=== PATIENT | female | born 1950 | race Caucasian/White ===

== ENCOUNTER 2017-01-24 07:54 | Inpatient (IN) | payer MEDICARE ==
[~2017-01-24] VITALS: Ht 165.1 cm; Wt 93.8 kg
[2017-01-24 08:47] LABS: HEMATOCRIT 45.6 % (37.0-47.0); HEMOGLOBIN 15.4 g/dl (12.0-16.0); IMMATURE GRANULOCYTES 0.2 % (0.0-1.0); MEAN CELL VOLUME 88.9 fL CALC (80.0-100.0); MEAN CORPUSCULAR HGB CONC 33.8 g/L CALC (32.0-36.0); NEUT# 3.46 thou/uL (2.00-7.15); RED BLOOD COUNT 5.13 mill/uL (4.20-5.60); RED CELL DISTRI WIDTH 12.2 % (11.5-15.5)
[2017-01-24 09:01] LABS: ALBUMIN 4.2 g/dL (3.2-5.0); ALKALINE PHOSPHATASE 97 u/l (38-126); ANION GAP 16 (6-22 (CALC)); BILIRUBIN, TOTAL 0.8 mg/dL (0.0-1.4); BUN 9 mg/dL (8-23); BUN/CREATININE RATIO 11 (12-20 (CALC)); CALCIUM 9.7 mg/dL (8.4-10.2); CARBON DIOXIDE 25 mmol/l (22-30); CHLORIDE 109 mmol/l (95-108); CREATININE 0.8 mg/dL (0.5-1.0); GFR > 60 ML/MIN (>=60 (CALC)); GFR FOR AFR.AMER. > 60 ML/MIN (>=60 (CALC)); GLUCOSE 144 mg/dL (82-115); POTASSIUM 3.4 mmol/l (3.5-5.1); SGOT/AST 28 u/l (9-36); SGPT/ALT 39 u/l (11-66); SODIUM 146 mmol/l (137-146); TOTAL PROTEIN 7.2 g/dL (6.3-8.2)
[2017-01-24] MEDS ORDERED: CYMBALTA60 MG PO (10:25)
[2017-01-24] MEDS ORDERED: TRAZODONE50 MG PO (10:25)
[2017-01-24] MEDS ORDERED: AMLOD/BENAZP1 CA2 PO (10:26)
[2017-01-24] MEDS ORDERED: LORAZEPAM0.5 MG PO (10:27)
[2017-01-24 10:29] LABS: URINE BILIRUBIN - DIPSTICK NEGATIVE (NEGATIVE); URINE BLOOD DIPSTICK TRACE-INTACT (NEGATIVE); URINE CLARITY CLEAR; URINE COLOR YELLOW; URINE GLUCOSE - DIPSTICK NEGATIVE (NEGATIVE); URINE KETONE NEGATIVE (NEGATIVE); URINE LEUK ESTERASE TRACE (NEGATIVE); URINE NITRITE - DIPSTICK NEGATIVE (Negative); URINE PROTEIN - DIPSTICK NEGATIVE (NEG-TRACE); URINE SPECIFIC GRAVITY 1.015; URINE UROBILINOGEN - DIPSTICK 0.2 E.U./dL (0.2)
[2017-01-24 12:07] VITALS: BP 126/71
[2017-01-24 15:22] VITALS: BP 166/83
[2017-01-24 17:53] VITALS: BP 139/73
[2017-01-24 19:10] VITALS: BP 98/59
[2017-01-25] VITALS (22 sets, daily range): BP systolic 83–164; BP diastolic 31–101
[2017-01-25 06:27] LABS: HEMATOCRIT 40.7 % (37.0-47.0); HEMOGLOBIN 13.6 g/dl (12.0-16.0); MEAN CELL VOLUME 89.6 fL CALC (80.0-100.0); MEAN CORPUSCULAR HGB CONC 33.4 g/L CALC (32.0-36.0); RED BLOOD COUNT 4.54 mill/uL (4.20-5.60); RED CELL DISTRI WIDTH 12.7 % (11.5-15.5)
[2017-01-25 06:48] LABS: CALCIUM 8.8 mg/dL (8.4-10.2); CREATININE 1.3 mg/dL (0.5-1.0); POTASSIUM 4.1 mmol/l (3.5-5.1)
[2017-01-25 13:01] LABS: URINE BILIRUBIN - DIPSTICK NEGATIVE (NEGATIVE); URINE BLOOD DIPSTICK LARGE (NEGATIVE); URINE COLOR YELLOW; URINE GLUCOSE - DIPSTICK NEGATIVE (NEGATIVE); URINE KETONE NEGATIVE (NEGATIVE); URINE NITRITE - DIPSTICK NEGATIVE (Negative); URINE PROTEIN - DIPSTICK NEGATIVE (NEG-TRACE); URINE UROBILINOGEN - DIPSTICK 0.2 E.U./dL (0.2)
[2017-01-25 13:06] LABS: URINE CLARITY CLOUDY; URINE LEUK ESTERASE MODERATE (NEGATIVE)
[2017-01-25 13:17] LABS: URINE BACTERIA FEW hpf; URINE RBC 25-50 RBC/hpf (0-5); URINE SQUAMOUS EPITHELIAL CELL FEW EPI/hpf (0-FEW); URINE WBC 20-50 WBC/hpf (0-5)
[2017-01-26 04:35] VITALS: BP 134/76
[2017-01-26 06:22] LABS: HEMATOCRIT 31.6 % (37.0-47.0); HEMOGLOBIN 10.4 g/dl (12.0-16.0); MEAN CELL VOLUME 89.5 fL CALC (80.0-100.0); MEAN CORPUSCULAR HGB 29.5 pG CALC (26.0-32.0); MEAN CORPUSCULAR HGB CONC 32.9 g/L CALC (32.0-36.0); RED BLOOD COUNT 3.53 mill/uL (4.20-5.60); RED CELL DISTRI WIDTH 12.8 % (11.5-15.5)
[2017-01-26 06:46] LABS: ANION GAP 10 (6-22 (CALC)); BUN 15 mg/dL (8-23); BUN/CREATININE RATIO 17 (12-20 (CALC)); CALCIUM 8.5 mg/dL (8.4-10.2); CARBON DIOXIDE 26 mmol/l (22-30); CHLORIDE 111 mmol/l (95-108); CREATININE 0.9 mg/dL (0.5-1.0); GFR > 60 ML/MIN (>=60 (CALC)); GFR FOR AFR.AMER. > 60 ML/MIN (>=60 (CALC)); GLUCOSE 104 mg/dL (82-115); MAGNESIUM 1.9 mg/dL (1.6-2.3); POTASSIUM 3.6 mmol/l (3.5-5.1); SODIUM 142 mmol/l (137-146)
[2017-01-26 07:45] VITALS: BP 136/70
[2017-01-26 17:00] VITALS: BP 153/86
[2017-01-26 19:10] VITALS: BP 144/84
[2017-01-27 04:08] VITALS: BP 171/91
[2017-01-27 08:04] VITALS: BP 153/83
[2017-01-27] MEDS ORDERED: KEFLEX500 M1 PO (13:09)
== END 2017-01-27 14:15 | disposition home or self-care (01) | DRG 872 ==
LOC: ED 07:54 → ED-I 08:31 → ED 11:27 → MS2 11:28
PROVIDERS: Emergency Medicine; Internal Medicine; ADMIT Internal Medicine; ATTEND Internal Medicine
PROC: 0T768DZ Dilation of Right Ureter with Intraluminal Device, Via Natural or Artificial Opening Endoscopic (ICD-10-PCS; principal; 2017-01-25)
PROC: BT1DYZZ Fluoroscopy of Right Kidney, Ureter and Bladder using Other Contrast (ICD-10-PCS; 2017-01-25)
DX: A41.9 Sepsis, unspecified organism (principal); N17.9 Acute kidney failure, unspecified; E87.2 Acidosis; N13.6 Pyonephrosis; F32.9 Major depressive disorder, single episode, unspecified; I10 Essential (primary) hypertension; F41.9 Anxiety disorder, unspecified; B96.20 Unspecified Escherichia coli [E. coli] as the cause of diseases classified elsewhere; Z87.442 Personal history of urinary calculi
CPT/HCPCS: J0692; J1650; Q9967

== ENCOUNTER 2017-02-25 07:04 | Day surgery (SDC) | payer MEDICARE ==
[~2017-02-25] VITALS: Ht 165.1 cm; Wt 93.0 kg
[~2017-02-25 07:04] MED LIST: AMLOD/BENAZP1 CA2 PO; CIPRO XR500 MG PO; CYMBALTA60 MG PO; KEFLEX500 M1 PO; LORAZEPAM0.5 MG PO; OXYCODONE5 MG PO; TRAZODONE50 MG PO; TYLENOL500 MG PO; ZESTRIL10 M1 PO
[2017-02-25] MEDS ORDERED: TAMSULOSIN0.4 MG PO (10:43)
[2017-02-25] MEDS ORDERED: PERCOCET 5/325M1 TAB PO (10:43)
[2017-02-25 11:43] VITALS: BP 112/60
== END 2017-02-25 11:55 | disposition home or self-care (01) ==
LOC: ORM 07:04
PROVIDERS: ATTEND Urology
PROC: 0TF3XZZ Fragmentation in Right Kidney Pelvis, External Approach (ICD-10-PCS; principal; 2017-02-25)
PROC: 0TF6XZZ Fragmentation in Right Ureter, External Approach (ICD-10-PCS; 2017-02-25)
DX: N20.2 Calculus of kidney with calculus of ureter (principal); I10 Essential (primary) hypertension; F32.9 Major depressive disorder, single episode, unspecified; F41.9 Anxiety disorder, unspecified; Z96.0 Presence of urogenital implants

== ENCOUNTER 2018-11-03 07:09 | Day surgery (SDC) | payer MEDICARE ==
[~2018-11-03] VITALS: Ht 172.7 cm; Wt 94.3 kg
[~2018-11-03 07:09] MED LIST changes: +B-12 INJECTION; +B-121000 MC1 PO; +CYANOCOBAL1000 MCG/M; +CYMBALTA30 MG PO; +D3; +LISINOPRIL20 MG PO; +MULTIVITAMI9 PO; +NORVASC5 M1 PO; +PERCOCET 5/325M1 TAB PO; +PROAIR HFA IN; +TAMSULOSIN0.4 MG PO; +VITAMIN D320 MCG
[2018-11-03 09:21] VITALS: BP 155/78
== END 2018-11-03 09:25 | disposition home or self-care (01) ==
LOC: ENDO 07:09
PROVIDERS: ATTEND Surgery
PROC: 0DBH8ZX Excision of Cecum, Via Natural or Artificial Opening Endoscopic, Diagnostic (ICD-10-PCS; principal; 2018-11-03)
PROC: 0DBL8ZX Excision of Transverse Colon, Via Natural or Artificial Opening Endoscopic, Diagnostic (ICD-10-PCS; 2018-11-03)
DX: D12.3 Benign neoplasm of transverse colon (principal); K63.5 Polyp of colon; K57.30 Diverticulosis of large intestine without perforation or abscess without bleeding

== ENCOUNTER 2019-05-14 | Emergency (ER) | payer MEDICARE ==
[2019-05-14] MEDS ORDERED: AMOXICILLIN875 MG PO (12:43)
== END 2019-05-14 13:05 | disposition home or self-care (01) ==
DX: I10 Essential (primary) hypertension (principal); J02.0 Streptococcal pharyngitis; N20.0 Calculus of kidney; R30.0 Dysuria; B96.20 Unspecified Escherichia coli [E. coli] as the cause of diseases classified elsewhere

== ENCOUNTER 2019-05-23 | Emergency (ER) | payer MEDICARE ==
[~2019-05-23] MED LIST changes: +AMOXICILLIN875 MG PO
[2019-05-23] MEDS ORDERED: TESSALON PERLE100 MG PO ×2 (12:53)
[2019-05-23] MEDS ORDERED: VENTOLIN HFA IN ×2 (12:53)
[2019-05-23] MEDS ORDERED: ZPAK PO (12:53)
== END 2019-05-23 13:05 | disposition home or self-care (01) ==
DX: J02.0 Streptococcal pharyngitis (principal); J40 Bronchitis, not specified as acute or chronic; I10 Essential (primary) hypertension

== ENCOUNTER 2019-08-26 22:48 | Emergency (ER) | payer MEDICARE ==
[~2019-08-26] VITALS: Ht 165.1 cm; Wt 95.5 kg
[~2019-08-26 22:48] MED LIST changes: +TESSALON PERLE100 MG PO; +VENTOLIN HFA IN; +ZPAK PO
[2019-08-26 23:45] LABS: URINE BILIRUBIN - DIPSTICK NEGATIVE (NEGATIVE); URINE BLOOD DIPSTICK NEGATIVE (NEGATIVE); URINE COLOR YELLOW; URINE GLUCOSE - DIPSTICK NEGATIVE (NEGATIVE); URINE KETONE NEGATIVE (NEGATIVE); URINE LEUK ESTERASE NEGATIVE (NEGATIVE); URINE NITRITE - DIPSTICK NEGATIVE (Negative); URINE PH 5.5 (4.5-8.0); URINE PROTEIN - DIPSTICK NEGATIVE (NEG-TRACE); URINE SPECIFIC GRAVITY >=1.030; URINE UROBILINOGEN - DIPSTICK 0.2 E.U./dL (0.2)
[2019-08-26 23:59] LABS: HEMATOCRIT 44.4 % (37.0-47.0); HEMOGLOBIN 14.8 g/dl (12.0-16.0); IMMATURE GRANULOCYTES 0.3 % (0.0-5.0); MEAN CELL VOLUME 88.4 fL CALC (80.0-100.0); MEAN CORPUSCULAR HGB 29.5 pG CALC (26.0-32.0); MEAN CORPUSCULAR HGB CONC 33.3 g/dL CAL (32.0-36.0); NEUT# 7.28 thou/uL (2.00-7.15); RED BLOOD COUNT 5.02 mill/uL (4.20-5.60); RED CELL DISTRI WIDTH 12.2 % (11.5-15.5)
[2019-08-27 00:27] LABS: ALBUMIN 4.2 g/dL (3.2-5.0); ALKALINE PHOSPHATASE 91 u/l (38-126); ANION GAP 13 (6-22 (CALC)); BILIRUBIN, TOTAL 0.5 mg/dL (0.0-1.4); BUN 11 mg/dL (8-23); BUN/CREATININE RATIO 15 (12-20 (CALC)); CARBON DIOXIDE 25 mmol/l (22-30); CHLORIDE 105 mmol/l (95-108); CREATININE 0.8 mg/dL (0.5-1.0); GFR > 60 ML/MIN (>=60 (CALC)); GFR FOR AFR.AMER. > 60 ML/MIN (>=60 (CALC)); POTASSIUM 3.9 mmol/l (3.5-5.1); SGOT/AST 19 u/l (9-36); SODIUM 138 mmol/l (137-146)
[2019-08-27] MEDS ORDERED: TORADOL PO (01:26)
[2019-08-27 01:30] VITALS: BP 144/62
== END 2019-08-27 02:10 | disposition home or self-care (01) ==
LOC: ED 22:48
PROVIDERS: Family Medicine
DX: S29.012A Strain of muscle and tendon of back wall of thorax, initial encounter (principal); S29.011A Strain of muscle and tendon of front wall of thorax, initial encounter; I10 Essential (primary) hypertension; X58.XXXA Exposure to other specified factors, initial encounter

== ENCOUNTER 2020-07-03 | Emergency (ER) | payer MEDICARE ==
[~2020-07-03] MED LIST changes: +TORADOL PO
[2020-07-03] MEDS ORDERED: HYDROCO/APAP1 TA9 PO (10:25)
== END 2020-07-03 11:35 | disposition home or self-care (01) ==
DX: S82.114A Nondisplaced fracture of right tibial spine, initial encounter for closed fracture (principal); I10 Essential (primary) hypertension; F32.9 Major depressive disorder, single episode, unspecified; F41.9 Anxiety disorder, unspecified; W01.0XXA Fall on same level from slipping, tripping and stumbling without subsequent striking against object, initial encounter; Y92.009 Unspecified place in unspecified non-institutional (private) residence as the place of occurrence of the external cause
CPT/HCPCS: L1830

== ENCOUNTER 2020-09-02 12:40 | Emergency (ER) | payer MEDICARE ==
[~2020-09-02] VITALS: Ht 165.1 cm; Wt 85.9 kg
[~2020-09-02 12:40] MED LIST changes: +HYDROCO/APAP1 TA9 PO
[2020-09-02] MEDS ORDERED: IBUPROFEN600 MG PO (15:18)
[2020-09-02 15:34] VITALS: BP 145/78
== END 2020-09-02 15:35 | disposition home or self-care (01) ==
LOC: ED 12:40
DX: S86.111A Strain of other muscle(s) and tendon(s) of posterior muscle group at lower leg level, right leg, initial encounter (principal); I10 Essential (primary) hypertension; F32.9 Major depressive disorder, single episode, unspecified; F41.9 Anxiety disorder, unspecified; X50.9XXA Other and unspecified overexertion or strenuous movements or postures, initial encounter

== ENCOUNTER 2022-02-15 12:34 | Emergency (ER) | payer OTHER, MEDICARE ==
[~2022-02-15] VITALS: Ht 165.1 cm; Wt 96.0 kg
[~2022-02-15 12:34] MED LIST changes: +IBUPROFEN600 MG PO
[2022-02-15 15:18] LABS: URINE BILIRUBIN - DIPSTICK NEGATIVE (NEGATIVE); URINE BLOOD DIPSTICK NEGATIVE (NEGATIVE); URINE COLOR YELLOW; URINE GLUCOSE - DIPSTICK NEGATIVE (NEGATIVE); URINE KETONE NEGATIVE (NEGATIVE); URINE LEUK ESTERASE TRACE (NEGATIVE); URINE PH 6.5 (4.5-8.0); URINE PROTEIN - DIPSTICK NEGATIVE (NEG-TRACE); URINE UROBILINOGEN - DIPSTICK 0.2 E.U./dL (0.2)
[2022-02-15 15:20] LABS: URINE NITRITE - DIPSTICK POSITIVE (Negative)
[2022-02-15 15:29] LABS: URINE BACTERIA MANY hpf; URINE SQUAMOUS EPITHELIAL CELL FEW EPI/hpf (0-FEW)
[2022-02-15] MEDS ORDERED: MACROBID100 M1 PO (16:26)
[2022-02-15] MEDS ORDERED: METHOCARBAMOL500 MG PO (16:26)
[2022-02-15] MEDS ORDERED: NAPROXEN500 MG PO (16:26)
[2022-02-15 16:52] VITALS: BP 136/65
== END 2022-02-15 16:52 | disposition home or self-care (01) | DRG 552 ==
LOC: ED 12:34
PROVIDERS: Nurse Practitioner
DX: S16.1XXA Strain of muscle, fascia and tendon at neck level, initial encounter (principal); N39.0 Urinary tract infection, site not specified; I10 Essential (primary) hypertension; F41.8 Other specified anxiety disorders; V49.50XA Passenger injured in collision with unspecified motor vehicles in traffic accident, initial encounter

== ENCOUNTER 2022-05-23 09:04 | Day surgery (SDC) | payer MEDICARE ==
[~2022-05-23] VITALS: Ht 162.6 cm; Wt 95.7 kg
[~2022-05-23 09:04] MED LIST changes: +CYANOCOBAL1000 MCG/M IM; +D31000 UNIT PO; +MACROBID100 M1 PO; +METHOCARBAMOL500 MG PO; +MULTI VIT PO; +NAPROXEN500 MG PO
[2022-05-23 12:05] VITALS: BP 142/79
== END 2022-05-23 11:55 | disposition home or self-care (01) ==
LOC: ORM 09:04
PROVIDERS: ATTEND Surgery
PROC: 0DBL8ZX Excision of Transverse Colon, Via Natural or Artificial Opening Endoscopic, Diagnostic (ICD-10-PCS; principal; 2022-05-23)
DX: Z12.11 Encounter for screening for malignant neoplasm of colon (principal); D12.3 Benign neoplasm of transverse colon; K57.30 Diverticulosis of large intestine without perforation or abscess without bleeding; K64.8 Other hemorrhoids; I10 Essential (primary) hypertension; F41.9 Anxiety disorder, unspecified; F32.A Depression, unspecified

== ENCOUNTER 2024-03-10 16:50 | Emergency (ER) | payer MEDICARE ==
[~2024-03-10] VITALS: Ht 162.6 cm; Wt 78.0 kg
[2024-03-10] VITALS (12 sets, daily range): BP systolic 150–206; BP diastolic 77–107
[2024-03-10] MEDS ORDERED: KETOROLAC TROMETHAMINE 15 MG/ML SDV IV ONE (16:55)
[2024-03-10 17:14] LABS: BASO% 0.6 % (0-3); EOS% 2.5 % (0-8); HEMATOCRIT 42.9 % (37.0-47.0); HEMOGLOBIN 13.9 g/dl (12.0-16.0); IMMATURE GRANULOCYTES 0.1 % (0.0-5.0); MEAN CELL VOLUME 88.6 fL CALC (80.0-100.0); MEAN CORPUSCULAR HGB 28.7 pG CALC (26.0-32.0); MEAN CORPUSCULAR HGB CONC 32.4 g/dL CAL (32.0-36.0); MONO% 7.1 % (2-13); NEUT# 3.83 thou/uL (2.00-7.15); NEUT% 56.7 % (42-76); RED BLOOD COUNT 4.84 mill/uL (4.20-5.60); RED CELL DISTRI WIDTH 12.6 % (11.5-15.5)
[2024-03-10 17:21] LABS: ALBUMIN 4.1 g/dL (3.2-5.0); BILIRUBIN, TOTAL 0.6 mg/dL (0.02-1.3); CREATININE 0.9 mg/dL (0.5-1.0); POTASSIUM 3.8 mmol/l (3.5-5.1); TOTAL PROTEIN 6.7 g/dL (6.3-8.2)
[2024-03-10] MEDS ORDERED: LABETALOL HCL 100 MG/20 ML VIAL IV ONE (17:25)
[2024-03-10 17:30] LABS: URINE BILIRUBIN - DIPSTICK Negative (NEGATIVE); URINE BLOOD DIPSTICK Moderate (NEGATIVE); URINE COLOR Yellow; URINE GLUCOSE - DIPSTICK Negative (NEGATIVE); URINE KETONE Negative (NEGATIVE); URINE LEUK ESTERASE Moderate (NEGATIVE); URINE NITRITE - DIPSTICK Negative (Negative); URINE PROTEIN - DIPSTICK 30 mg/dL (NEG-TRACE); URINE SPECIFIC GRAVITY 1.025; URINE UROBILINOGEN - DIPSTICK 0.2 E.U./dL (0.2)
[2024-03-10 17:35] LABS: URINE WBC 50-100 WBC/hpf (0-5)
[2024-03-10 17:36] LABS: URINE BACTERIA FEW hpf; URINE CALCIUM OXALATE CRYSTALS MODERATE lpf; URINE SQUAMOUS EPITHELIAL CELL FEW EPI/hpf (0-FEW)
[2024-03-10 17:37] LABS: URINE YEAST FEW hpf
[2024-03-10] MEDS ORDERED: SODIUM CHLORIDE 0.9% 1,000 ML IV ONE (19:10)
[2024-03-10] MEDS ORDERED: TORADOL PO (21:14)
[2024-03-10] MEDS ORDERED: MACROBID100 M1 PO (21:14)
[2024-03-10] MEDS ORDERED: OMNICEF300 M1 PO (21:14)
[2024-03-10] MEDS ORDERED: ZOFRAN4 MG/TAB PO (21:14)
== END 2024-03-10 22:46 | disposition home or self-care (01) ==
LOC: ED 16:50
PROVIDERS: Family Medicine
DX: N13.6 Pyonephrosis (principal); B96.1 Klebsiella pneumoniae [K. pneumoniae] as the cause of diseases classified elsewhere; I10 Essential (primary) hypertension; F32.A Depression, unspecified; F41.9 Anxiety disorder, unspecified; Z87.442 Personal history of urinary calculi
CPT/HCPCS: J0696; J1885; J1920

== ENCOUNTER 2024-05-07 17:41 | Observation (INO) | payer MEDICARE ==
[2024-05-07] VITALS (25 sets, daily range): BP systolic 113–211; BP diastolic 59–107
[~2024-05-07] VITALS: Ht 162.6 cm; Wt 85.0 kg
[~2024-05-07 17:41] MED LIST changes: +OMNICEF300 M1 PO; +ZOFRAN4 MG/TAB PO
[2024-05-07] MEDS ORDERED: MORPHINE SULFATE 4 MG/ML VIAL IV STA (18:14)
[2024-05-07] MEDS ORDERED: SODIUM CHLORIDE 0.9% 1,000 ML IV ONE (18:15)
[2024-05-07] MEDS ORDERED: ONDANSETRON HCl 4 MG/2 ML SDV IV ONE (18:15)
[2024-05-07 18:22] LABS: BASO% 0.4 % (0-3); EOS% 1.9 % (0-8); HEMATOCRIT 41.5 % (37.0-47.0); HEMOGLOBIN 13.4 g/dl (12.0-16.0); IMMATURE GRANULOCYTES 0.1 % (0.0-5.0); LYMPH% 25.8 % (15-41); MEAN CELL VOLUME 91.6 fL CALC (80.0-100.0); MEAN CORPUSCULAR HGB 29.6 pG CALC (26.0-32.0); MEAN CORPUSCULAR HGB CONC 32.3 g/dL CAL (32.0-36.0); MONO% 7.5 % (2-13); NEUT# 5.05 thou/uL (2.00-7.15); NEUT% 64.3 % (42-76); RED BLOOD COUNT 4.53 mill/uL (4.20-5.60); RED CELL DISTRI WIDTH 12.2 % (11.5-15.5)
[2024-05-07 18:37] LABS: ALBUMIN 3.5 g/dL (3.2-5.0); BILIRUBIN, TOTAL 0.5 mg/dL (0.02-1.3); CREATININE 1.1 mg/dL (0.5-1.0); POTASSIUM 3.9 mmol/l (3.5-5.1)
[2024-05-07] MEDS ORDERED: HYDROmorphone HCL 2 MG/AMP IV STA ×2 (19:48→20:47)
[2024-05-07 20:15] LABS: URINE BILIRUBIN - DIPSTICK Negative (NEGATIVE); URINE BLOOD DIPSTICK Moderate (NEGATIVE); URINE GLUCOSE - DIPSTICK Negative (NEGATIVE); URINE KETONE Negative (NEGATIVE); URINE NITRITE - DIPSTICK Negative (Negative); URINE PROTEIN - DIPSTICK 30 mg/dL (NEG-TRACE); URINE SPECIFIC GRAVITY 1.025; URINE UROBILINOGEN - DIPSTICK 0.2 E.U./dL (0.2)
[2024-05-07 20:18] LABS: URINE COLOR Yellow
[2024-05-07 20:19] LABS: URINE LEUK ESTERASE Small (NEGATIVE)
[2024-05-07 20:23] LABS: URINE BACTERIA FEW hpf; URINE MUCUS FEW hpf (NONE-FEW); URINE SQUAMOUS EPITHELIAL CELL FEW EPI/hpf (0-FEW)
[2024-05-07 20:24] LABS: URINE YEAST MODERATE hpf
[2024-05-07] MEDS ORDERED: KETOROLAC TROMETHAMINE 15 MG/ML SDV IV STA (20:47)
[2024-05-07] MEDS ORDERED: ONDANSETRON 4 MG/TAB ODT PO ONE (20:50)
[2024-05-07] MEDS ORDERED: oxyCODONE 10MG/APAP 325 MG 1 COMBO TAB PO ONE (20:50)
[2024-05-07] MEDS ORDERED: SODIUM CHLORIDE 0.9% 1,000 ML IV PRN (21:10)
[2024-05-07] MEDS ORDERED: ACETAMINOPHEN 325 MG/TAB PO PRN (21:10)
[2024-05-07] MEDS ORDERED: MAGNESIUM HYDROXIDE 30 ML UDC PO PRN (21:10)
[2024-05-08] VITALS (16 sets, daily range): BP systolic 123–175; BP diastolic 37–96
[2024-05-08] MEDS ORDERED: HYDROmorphone HCL 2 MG/AMP IV PRN (02:15)
[2024-05-08 04:53] LABS: HEMATOCRIT 42.5 % (37.0-47.0); HEMOGLOBIN 12.8 g/dl (12.0-16.0); MEAN CORPUSCULAR HGB 29.8 pG CALC (26.0-32.0); MEAN CORPUSCULAR HGB CONC 30.1 g/dL CAL (32.0-36.0); RED BLOOD COUNT 4.29 mill/uL (4.20-5.60); RED CELL DISTRI WIDTH 12.1 % (11.5-15.5)
[2024-05-08 05:04] LABS: MEAN CELL VOLUME 99.1 fL CALC (80.0-100.0)
[2024-05-08 05:06] LABS: ALBUMIN 3.4 g/dL (3.2-5.0); BILIRUBIN, TOTAL 0.6 mg/dL (0.02-1.3); CREATININE 1.1 mg/dL (0.5-1.0); POTASSIUM 4.3 mmol/l (3.5-5.1); TOTAL PROTEIN 5.8 g/dL (6.3-8.2)
[2024-05-08] MEDS ORDERED: SODIUM CHLORIDE 1,000 ML BTL IR ONE (08:41)
[2024-05-08] MEDS ORDERED: STERILE WATER 3,000 ML IV ONE (08:41)
[2024-05-08] MEDS ORDERED: FAMOTIDINE 10MG/ML 2ML SDV IV ONE (08:55)
[2024-05-08] MEDS ORDERED: ISOVUE-300 (Iopamidol) 100 ML SDV IV ONE (09:47)
[2024-05-08] MEDS ORDERED: ONDANSETRON HCl 4 MG/2 ML SDV ONE (09:59)
[2024-05-08] MEDS ORDERED: SODIUM CHLORIDE 0.9% 1,000 ML IV ONE (10:19)
[2024-05-08] MEDS ORDERED: KETOROLAC TROMETHAMINE 30 MG/ML SDV IV ONE (11:31)
[2024-05-08] MEDS ORDERED: PROPOFOL 200 MG/20 ML VIAL IV ONE (11:31)
[2024-05-08] MEDS ORDERED: LIDOCAINE HCL 2% 2ML SDV IV ONE (11:31)
[2024-05-08] MEDS ORDERED: ENOXAPARIN SODIUM 40 MG/0.4 ML SYR SC SCH (21:00)
[2024-05-08] MEDS ORDERED: traZODone HCL 50 MG/TAB PO SCH (21:00)
[2024-05-08] MEDS ORDERED: LISINOPRIL 20 MG/TAB PO SCH (21:00)
[2024-05-09] VITALS: BP 171/79
[2024-05-09 04:00] VITALS: BP 125/62
[2024-05-09 04:37] VITALS: BP 125/62
[2024-05-09 07:04] VITALS: BP 125/68
[2024-05-09 08:40] VITALS: BP 125/68
[2024-05-09] MEDS ORDERED: KEFLEX500 MG PO (09:53)
[2024-05-09] MEDS ORDERED: Polyethylene Glycol 3350 17 GM/PKT PO SCH (10:30)
[2024-05-12] MEDS ORDERED: ZYRTEC10 MG PO (15:06)
[2024-05-12] MEDS ORDERED: LOSARTAN POTASS50 MG PO (15:07)
== END 2024-05-09 12:13 | disposition home or self-care (01) ==
LOC: ED 17:41 → ED-I 20:40 → ED 21:11 → MS2 21:12
PROVIDERS: Family Medicine; ADMIT Internal Medicine; ATTEND Internal Medicine
PROC: 0T768DZ Dilation of Right Ureter with Intraluminal Device, Via Natural or Artificial Opening Endoscopic (ICD-10-PCS; principal; 2024-05-08)
DX: N13.2 Hydronephrosis with renal and ureteral calculous obstruction (principal); I10 Essential (primary) hypertension; F41.9 Anxiety disorder, unspecified; F32.A Depression, unspecified; Z87.442 Personal history of urinary calculi
CPT/HCPCS: J0696; J1171; J1650; J1885; J2405; Q9966